=== PATIENT | male | born 1970 | race Caucasian/White ===

== ENCOUNTER 2017-02-15 23:42 | Emergency (ER) | payer OTHER ==
[2017-02-16] MEDS: KETOROLAC TROMETHAMINE 60 MG/2 ML VIAL IM ONE (00:13)
[2017-02-16 00:46] VITALS: BP 143/85
--- NOTE | 2017-02-16 01:11 | ED Physician Documentation ---
Low Back Pain - HISTORIAN Historian: patient - HPI Stated Complaint: BACK PAIN Chief Complaint: Low Back Pain/ Injury History: back pain Onset: hours Duration: continues in ED Context: lifting Severity: severe Quality: similar- prior back pain Further Comments: yes (53 year old male presents to the ER with complaints of sciatica radiating down left leg. Patient reports lifting his brother in law, "pulled my back". Patient is accompanied by his friend who presents with similar complaints. C/O pain radiating down left leg.) - ROS CONST: no problems CVS/RESP: none EYES/ENT: none MS/SKIN/LYMPH: back pain Neuro/Psych: none GI/: denies: abdominal pain, black stools - PAST HX Past History: back injury, back pain Other History: hypertension, other (HTN, COPD, seizures) Allergies/Adverse Reactions: Allergies Allergy/AdvReac Type Severity Reaction Status Date / Time trazodone Allergy Severe Anaphylaxis Verified 02/15/17 23:58 amoxicillin [Amoxicillin] Allergy Anaphylaxis Verified 02/15/17 23:58 Home Medications: Ambulatory Orders Medication Instructions Recorded Atenolol [Tenormin] 50 mg PO DAILY 01/18/13 Baclofen [Lioresal] 10 mg PO TID 01/18/13 Fluticasone Propionate [Flovent 2 puff IH BID 01/18/13 Diskus] Gabapentin 600 mg PO TID 01/18/13 Hydroxyzine Pamoate [Vistaril] 50 mg PO BID 01/18/13 Ipratropium/Albuterol Sulfate 2 puff IH QID 01/18/13 [Combivent Inhaler] Phenytoin Sodium Extended 300 mg PO HS 01/18/13 [Dilantin] Phenytoin [Dilantin] 50 mg PO HS 01/18/13 Prazosin HCl [Minipress] 2 mg PO HS 01/18/13 Promethazine HCl [Phenergan] 25 mg PO Q6 PRN 01/18/13 Quetiapine Fumarate [Seroquel] 400 mg PO HS 01/18/13 SUMAtriptan SUCCINATE [Imitrex] 25 mg PO PRN PRN 01/18/13 Tamsulosin HCl 2 tab PO DAILY 01/18/13 levETIRAcetam [Keppra] 1,000 mg PO BID 01/18/13 Cetirizine HCl [Zyrtec] 10 mg PO DAILY 06/16/13 Duloxetine HCl [Cymbalta] 20 mg PO BID 06/16/13 Lisinopril 20 mg PO DAILY 06/16/13 Quetiapine Fumarate [Seroquel] 50 mg PO DAILY 06/16/13 Chlorpromazine HCl 100 mg PO D 08/17/14 Duloxetine HCl [Cymbalta] 60 mg PO DAILY 08/17/14 Ondansetron HCl Tablet [Zofran] 8 mg PO Q6H PRN 08/17/14 Zolpidem Tartrate [Ambien] 10 mg PO HS 08/17/14 Naproxen [Naprosyn] 500 mg PO BID #10 tablet 02/16/17 - SOCIAL HX Smoking History: cigarettes - FAMILY HX Family History: denies: none - VITAL SIGNS Vital Signs: Vital Signs Temp Pulse Resp BP Pulse Ox 98.6 F 72 18 143/85 97 02/16/17 00:45 02/16/17 00:45 02/16/17 00:45 02/16/17 00:45 02/15/17 23:46 - REVIEWED ASSESSMENTS Nursing Assessment Reviewed: Yes Vitals Reviewed: Yes Progress - Progress Progress: Patient medicated for pain with toradol IM. Patient is driving will not give narcotic in ER. Prescription for NSAID to pharmacy. ED Results Lab/Radiology - Orders Orders: ED Orders Category Date Time Status Ketorolac Tromethamine [Toradol] Med 02/16/17 00:09 Discontinued 60 mg IM NOW ONE Low Back Pain/Injury - Physical Exam General Appearance: no acute distress, alert EENT: eye inspection normal, KAITLYNN Resp/CVS: chest non-tender, breath sounds nml, heart sounds nml, no resp. distress, lungs clear, reg. rate & rhythm Abdomen: non-tender, no organomegaly, no pulsatile mass Back: non-tender, painless ROM. No: vertebral point-tendernes, CVA tenderness, muscle spasm Straight Leg Raising: Negative Left, Negative Right Neuro/Psych: oriented x3, motor nml, sensation nml, bilat. 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 You may use Tylenol every 4hour as needed for pain. Limit your dose to less than 4 G per day. Home Medications: Ambulatory Orders Atenolol [Tenormin] 50 mg PO DAILY 01/18/13 Baclofen [Lioresal] 10 mg PO TID 01/18/13 Fluticasone Propionate [Flovent Diskus] 2 puff IH BID 01/18/13 Gabapentin 600 mg PO TID 01/18/13 Hydroxyzine Pamoate [Vistaril] 50 mg PO BID 01/18/13 Ipratropium/Albuterol Sulfate [Combivent Inhaler] 2 puff IH QID 01/18/13 Phenytoin Sodium Extended [Dilantin] 300 mg PO HS 01/18/13 Phenytoin [Dilantin] 50 mg PO HS 01/18/13 Prazosin HCl [Minipress] 2 mg PO HS 01/18/13 Promethazine HCl [Phenergan] 25 mg PO Q6 PRN 01/18/13 Quetiapine Fumarate [Seroquel] 400 mg PO HS 01/18/13 SUMAtriptan SUCCINATE [Imitrex] 25 mg PO PRN PRN 01/18/13 Tamsulosin HCl 2 tab PO DAILY 01/18/13 levETIRAcetam [Keppra] 1,000 mg PO BID 01/18/13 Cetirizine HCl [Zyrtec] 10 mg PO DAILY 06/16/13 Duloxetine HCl [Cymbalta] 20 mg PO BID 06/16/13 Lisinopril 20 mg PO DAILY 06/16/13 Quetiapine Fumarate [Seroquel] 50 mg PO DAILY 06/16/13 Chlorpromazine HCl 100 mg PO D 08/17/14 Duloxetine HCl [Cymbalta] 60 mg PO DAILY 08/17/14 Ondansetron HCl Tablet [Zofran] 8 mg PO Q6H PRN 08/17/14 Zolpidem Tartrate [Ambien] 10 mg PO HS 08/17/14 Naproxen [Naprosyn] 500 mg PO BID #10 tablet 02/16/17 Condition: Good Disposition: 01 HOME, SELF-CARE Decision to Admit: NO Decision Time: 01:05
== END 2017-02-16 00:45 | disposition home or self-care (01) ==
LOC: ED 23:42
DX: M54.32 Sciatica, left side (principal)
CPT/HCPCS: 96372; 99283; J1885

== ENCOUNTER 2017-03-21 13:54 | Emergency (ER) | payer OTHER ==
[2017-03-21 14:06] VITALS: BP 163/99
--- NOTE | 2017-03-21 14:33 | ED Physician Documentation ---
Low Back Pain - HISTORIAN Historian: patient - HPI Stated Complaint: Back Pain Chief Complaint: Low Back Pain/ Injury Additional Information: HAD SEIZURE THIS AM FELL OVER TABLE W/LO BACK PAIN. DENIES OTHER INJURIES History: other (SEIZURES ET AL - MANY MEDS) Onset: hours (0800) Duration: continues in ED Recent Injury: Yes Context: fall Where: home Other Injuries: back Severity: mild, moderate Quality: dull, similar- prior back pain Associated Symptoms: denies: fever, chills, sweating Worsened By:: other (MOVEMENTESP FLEXION) - ROS CONST: no problems CVS/RESP: none EYES/ENT: none MS/SKIN/LYMPH: none GI/: denies: abdominal pain - PAST HX Past History: sciatica, other (SEIZURES ASTHMA HTN DEPRESSION SCHIZOPHRENIA) Allergies/Adverse Reactions: Allergies Allergy/AdvReac Type Severity Reaction Status Date / Time trazodone Allergy Severe Anaphylaxis Verified 03/21/17 14:06 amoxicillin [Amoxicillin] Allergy Anaphylaxis Verified 03/21/17 14:06 Home Medications: Ambulatory Orders Medication Instructions Recorded Atenolol [Tenormin] 50 mg PO DAILY 01/18/13 Baclofen [Lioresal] 10 mg PO TID 01/18/13 Fluticasone Propionate [Flovent 2 puff IH BID 01/18/13 Diskus] Gabapentin 600 mg PO TID 01/18/13 Hydroxyzine Pamoate [Vistaril] 50 mg PO BID 01/18/13 Ipratropium/Albuterol Sulfate 2 puff IH QID 01/18/13 [Combivent Inhaler] Phenytoin Sodium Extended 300 mg PO HS 01/18/13 [Dilantin] Phenytoin [Dilantin] 50 mg PO HS 01/18/13 Prazosin HCl [Minipress] 2 mg PO HS 01/18/13 Promethazine HCl [Phenergan] 25 mg PO Q6 PRN 01/18/13 Quetiapine Fumarate [Seroquel] 400 mg PO HS 01/18/13 SUMAtriptan SUCCINATE [Imitrex] 25 mg PO PRN PRN 01/18/13 Tamsulosin HCl 2 tab PO DAILY 01/18/13 levETIRAcetam [Keppra] 1,000 mg PO BID 01/18/13 Cetirizine HCl [Zyrtec] 10 mg PO DAILY 06/16/13 Duloxetine HCl [Cymbalta] 20 mg PO BID 06/16/13 Lisinopril 20 mg PO DAILY 06/16/13 Quetiapine Fumarate [Seroquel] 50 mg PO DAILY 06/16/13 Chlorpromazine HCl 100 mg PO D 08/17/14 Duloxetine HCl [Cymbalta] 60 mg PO DAILY 08/17/14 Ondansetron HCl Tablet [Zofran] 8 mg PO Q6H PRN 08/17/14 Zolpidem Tartrate [Ambien] 10 mg PO HS 08/17/14 Naproxen [Naprosyn] 500 mg PO BID #10 tablet 02/16/17 Methocarbamol [Robaxin-750] 750 mg PO QID #40 tablet 03/21/17 predniSONE [Deltasone] 60 mg PO QD #12 tablet 03/21/17 - SOCIAL HX Smoking History: greater than 1 pack/day Alcohol Use: none Drug Use: none - FAMILY HX Family History: none - VITAL SIGNS Vital Signs: Vital Signs Temp Pulse Resp BP Pulse Ox 98 F 68 18 163/99 96 03/21/17 13:55 03/21/17 14:28 03/21/17 14:28 03/21/17 14:28 03/21/17 14:28 - REVIEWED ASSESSMENTS Nursing Assessment Reviewed: Yes Vitals Reviewed: Yes Low Back Pain/Injury - Physical Exam General Appearance: mild distress EENT: eye inspection normal Neck: non-tender, painless ROM Resp/CVS: chest non-tender, breath sounds nml, heart sounds nml Abdomen: non-tender Back: CVA tenderness, other (CAN TOLERATE 90 DEG LEG FLEXION SITTING BUT PAIN AT 15 DEG SUPINE) Neuro/Psych: oriented x3, motor nml, sensation nml Skin: warm/dry, normal color. No: cyanosis, diaphoresis Extremities: non-tender, normal range of motion Discharge Clincal Impression: SEIZURE FALL LO BACK PAIN Prescriptions: Methocarbamol [Robaxin-750] 750 mg PO QID #40 tablet predniSONE [Deltasone] 60 mg PO QD #12 tablet Referrals: Primary Doctor,No [Primary Care Provider] - 2 Days Comments: PRED PLUS ROBAXIN Condition: Good Disposition: 01 HOME, SELF-CARE Decision to Admit: NO Decision Time: 14:38
== END 2017-03-21 14:28 | disposition home or self-care (01) ==
LOC: ED 13:54
DX: G40.909 Epilepsy, unspecified, not intractable, without status epilepticus (principal); M54.5 Low back pain; W19.XXXA Unspecified fall, initial encounter; Y93.9 Activity, unspecified; Y99.9 Unspecified external cause status
CPT/HCPCS: 99283

== ENCOUNTER 2017-09-17 20:17 | Emergency (ER) | payer OTHER ==
--- NOTE | 2017-09-17 20:21 | ED Physician Documentation ---
Male Genitourinary Problems - HISTORIAN Historian: patient - HPI Stated Complaint: low back pain Chief Complaint: Lower Extremity Problem Onset: other (3 weeks ) Duration: continues in ED Context: other (history of low back pain ) Further Comments: yes (States he is concerned with kidney infection. Denies any urgecny no burning, no blood in urine. Denies any loss of control of bowel or bladder. He has no numbness or pain in legs. No new injury. He has tried tylenol and ibuprofen with no aide. He has no other complaints . No penial dischage. No new sexual partners) - Associated Symptoms Problems Urinating: denies: blood in urine, frequent urination, discomfort w/ urination, burning w/ urination, urgency w/ urination, pain w/ urination Penile Discharge Descripiton: other (denies any discharge ) Testicular Pain: none Testicular Swelling: none Penile Pain: No Penile Swelling: No Flank Pain: none Abdominal Pain: none - Sexual History Sexual History: non-contributory - ROS CONST: none GI/: denies: nausea, vomiting, abdominal pain, problems urinating MS/SKIN/LYMPH: none CVS/RESP: none EYES/ENT: none - PAST HX Past History: hypertension, other (low back pain) Surgeries/Procedures: other (cardiac stent ) Immunizations: referred to PCP Allergies/Adverse Reactions: Allergies Allergy/AdvReac Type Severity Reaction Status Date / Time amoxicillin [Amoxicillin] Allergy Severe Anaphylaxis Verified 09/17/17 20:47 trazodone Allergy Severe Anaphylaxis Verified 09/17/17 20:47 Home Medications: Ambulatory Orders Medication Instructions Recorded Ipratropium/Albuterol Sulfate 2 puff IH QID 01/18/13 [Combivent Inhaler] Prazosin HCl [Minipress] 2 mg PO HS 01/18/13 SUMAtriptan SUCCINATE [Imitrex] 25 mg PO PRN PRN 01/18/13 levETIRAcetam [Keppra] 1,000 mg PO BID 01/18/13 Zolpidem Tartrate [Ambien] 10 mg PO HS 08/17/14 Naproxen [Naprosyn] 500 mg PO BID #10 tablet 02/16/17 Fluticasone Propionate [Flovent 1 puff INH DIRECTED 09/17/17 Diskus] - SOCIAL HX Smoking History: cigarettes Alcohol Use: none Drug Use: none - FAMILY HX Family History: none - VITAL SIGNS Vital Signs: Vital Signs Temp Pulse Resp BP Pulse Ox 163/99 03/21/17 14:28 - REVIEWED ASSESSMENTS Nursing Assessment Reviewed: Yes Vitals Reviewed: Yes ED Results Lab/Radiology - Orders Orders: ED Orders Category Date Time Status Cyclobenzaprine HCl [Flexeril] Med 09/17/17 20:48 Once 10 mg PO NOW ONE Male Genitourinary Problems - EXAM General Appearance: no acute distress, alert Abdomen: non-tender, no organomegaly. No: guarding, abnml bowel sounds EENT: eye inspection normal Neck: nml inspection Respiratory: no resp distress, chest non-tender, breath sounds normal CVS: reg rate & rhythm, heart sounds normal, equal pulses, no murmur Back: other (painful ROM with forward and side bending . Pain with palpation on right and left lower back with midline ) Extremities: normal range of motion, non-tender, no pedal edema Neuro/Psych: oriented X3, CN's nml as tested, motor nml, sensation nml, mood/ affect nml Skin: warm/dry, normal color Discharge Clincal Impression: Low back pain Qualifiers: Chronicity: chronic Back pain laterality: left Sciatica presence: with sciatica Sciatica laterality: sciatica laterality unspecified Qualified Code(s) : M54.40 - Lumbago with sciatica, unspecified side Referrals: Pawan Santiago MD [Primary Care Provider] - 2 Days Additional Instructions: 1. Cyclobenzaprine 10 mg take 1 by mouth every 8 hours as needed for pain 2. Naproxen 500 mg BID as needed for pain 3. Medrol Dose pack (4mg) take as directed 4. Ice/Heat 5. Back exercises 6. Return TO PCP in 4-6 days for re eval 7. return to ER for uncontrolled pain, loss of control of bowel or bladder or other concerns Condition: Stable Decision to Admit: NO Date of Decison to Admit: 09/17/17 Decision Time: 21:00
[2017-09-17] MEDS ORDERED: CYCLOBENZAPRINE HCL 5 MG TABLET PO ONE (20:48)
[2017-09-17 21:30] VITALS: BP 157/99
== END 2017-09-17 21:05 | disposition home or self-care (01) ==
LOC: ED 20:17
DX: M54.40 Lumbago with sciatica, unspecified side (principal)
CPT/HCPCS: 99282

== ENCOUNTER 2017-10-25 01:08 | Emergency (ER) | payer OTHER ==
--- NOTE | 2017-10-25 01:12 | ED Physician Documentation ---
General Adult - HISTORIAN Historian: patient - HPI Stated Complaint: shortness of breath Chief Complaint: Dyspnea Onset: days ago (2) Timing: still present Severity: mild Further Comments: yes (He states over the last two days he has had increasing shortness of breath. He is a smoker. Denies a fever. No wheezing. he is short of breath "all the time" No OTC meds . No allergy symtpoms no sick contacts. No swelling.) Last known Well Code/Unknown Code: Unknown - ROS CONST: denies: fever, weakness EYES/ENT: denies: sore throat, nasal congestion CVS/RESP: shortness of breath. denies: chest pain, cough GI/: denies: vomiting, nausea MS/SKIN/LYMPH: denies: rash NEURO/PSYCH: denies: headache - PAST HX Past History: hypertension, other (hyperlipidemia and [place] ) Surgeries/Procedures: cardiac stent Immunizations: UTD Allergies/Adverse Reactions: Allergies Allergy/AdvReac Type Severity Reaction Status Date / Time amoxicillin [Amoxicillin] Allergy Severe Anaphylaxis Verified 09/17/17 20:47 trazodone Allergy Severe Anaphylaxis Verified 09/17/17 20:47 Home Medications: Ambulatory Orders Medication Instructions Recorded Ipratropium/Albuterol Sulfate 2 puff IH QID 01/18/13 [Combivent Inhaler] Prazosin HCl [Minipress] 2 mg PO HS 01/18/13 SUMAtriptan SUCCINATE [Imitrex] 25 mg PO PRN PRN 01/18/13 levETIRAcetam [Keppra] 1,000 mg PO BID 01/18/13 Zolpidem Tartrate [Ambien] 10 mg PO HS 08/17/14 Naproxen [Naprosyn] 500 mg PO BID #10 tablet 02/16/17 Fluticasone Propionate [Flovent 1 puff INH DIRECTED 09/17/17 Diskus] - SOCIAL HX Smoking History: cigarettes Alcohol Use: none Drug Use: none - FAMILY HX Family History: No - VITAL SIGNS Vital Signs: Vital Signs Temp Pulse Resp BP Pulse Ox 157/99 09/17/17 21:27 - REVIEWED ASSESSMENTS Nursing Assessment Reviewed: Yes Vitals Reviewed: Yes Progress - Progress Progress: 0217: discussed results . Pt understands DG ED Results Lab/Radiology - Radiology Radiology Impressions: Chest 2 views History: Shortness of breath Findings: Mild right infrahilar infiltrate or bronchitis is observed. The left lung is clear. There is no pleural effusion. Heart size is normal. Impression: Right infrahilar infiltrate versus bronchitis. Electronically signed on October 25, 2017 1:40:13 AM CDT by: Alvaro Alfredo General Adult Physical Exam - PHYSICAL EXAM GENERAL APPEARANCE: no distress EENT: eye inspection normal, ENT inspection normal, pharynx normal NECK: normal inspection RESPIRATORY: no resp distress, chest non-tender, breath sounds normal CVS: reg rate & rhythm, heart sounds normal, equal pulses, no murmur ABDOMEN: soft, normal bowel sounds BACK: normal inspection SKIN: warm/dry EXTREMITIES: non-tender, normal range of motion, no evidence of injury, no edema NEURO: oriented X3, CN's nml as tested, motor nml, sensation nml, mood/affect nml, cognition normal Discharge Clincal Impression: Shortness of breath, Bronchitis Referrals: Pawan Santiago MD [Primary Care Provider] - 2 Days Comments: 1. STOP SMOKING 2. Take meds as ordered 3. Azithromycin 250 mg take 1 by mouth daily x4 days (500mg in ER) 4. Pro Air 2 puffs every 4-6 hours as needed for cough or shortness of air 5. Increase fluids 6. Follow up with PCP in 2-4 days 7. Return to ER for any changes in symptoms or concerns Condition: Stable Disposition: 01 HOME, SELF-CARE Decision to Admit: NO Date of Decison to Admit: 10/25/17 Decision Time: 02:18
[2017-10-25] MEDS ORDERED: IPRATROPIUM/ALBUTEROL SULFATE 3 ML AMPUL.NEB NEB ONE (01:21)
[2017-10-25] MEDS ORDERED: methylPREDNISolone SOD SUCC 125 MG/2 ML VIAL IVP ONE (01:43)
[2017-10-25 02:05] LABS: MEAN CORPUSCULAR HEMOGLOBIN 28.4 pg (28.0-34.0); MEAN CORPUSCULAR VOLUME 88.2 fl (80.0-100.0)
[2017-10-25 02:06] LABS: BASOPHILS % 0.3 (0.0-1.5); EOSINOPHILS % 6.8 % (0.0-6.8); MONOCYTES % 3.5 % (0.0-11.0); NEUTROPHILS # 3.5 # k/uL (1.4-7.7)
[2017-10-25 02:15] LABS: eGFR (African) > 60; eGFR (Non-African) > 60
[2017-10-25] MEDS ORDERED: AZITHROMYCIN 250 MG TABLET PO ONE ×2 (02:21→02:22)
[2017-10-25 03:08] VITALS: BP 139/88
--- NOTE | 2017-10-25 06:28 | Diagnostic Imaging Report ---
ALLISON HERNÁNDEZ [facility] [address] [facility].[address] [id number] Report Submission Date: October 25, 2017 1:40:13 AM CDT Patient Study Name: ISH BATISTA Date: October 25, 2017 1:23:20 AM CDT Modality Type: DX Gender: M Description: CHEST : 66 Institution: [facility] Physician: ALLISON HERNÁNDEZ Chest 2 views History: Shortness of breath Findings: Mild right infrahilar infiltrate or bronchitis is observed. The left lung is clear. There is no pleural effusion. Heart size is normal. Impression: Right infrahilar infiltrate versus bronchitis. Electronically signed on October 25, 2017 1:40:13 AM CDT by: Alvaro ROWE
== END 2017-10-25 02:27 | disposition home or self-care (01) ==
LOC: ED 01:08
DX: J40 Bronchitis, not specified as acute or chronic (principal); R06.02 Shortness of breath
CPT/HCPCS: 71046; 80053; 85025; J2930; 94640; 96372; 99284; S1016

== ENCOUNTER 2019-05-04 04:53 | Emergency (ER) | payer OTHER ==
--- NOTE | 2019-05-04 05:20 | ED Physician Documentation ---
Dyspnea - HISTORIAN Historian: patient - HPI Stated Complaint: shortness of breath Chief Complaint: Dyspnea Additional Information: Patient presented to ED with a 3 day history of worsening shortness of breath. Patient states his shortness of breath is worse when he lays down, better with sitting erect. He states the last time he was short of breath like this he had bronchitis. He has HTN, CAD, COPD. Onset: days ago (3) - ROS CONST: no problems EYES/ENT: none GI/: denies: vomiting, nausea NEURO/PSYCH: denies: headache MS/SKIN/LYMPH: denies: muscle aches - PAST HX Lung Disease: COPD Cardiac Disease: CAD PE Risk Factors: hypertension Surgeries/Procedures: none Other History: none Allergies/Adverse Reactions: Allergies Allergy/AdvReac Type Severity Reaction Status Date / Time amoxicillin [Amoxicillin] Allergy Severe Anaphylaxis Verified 05/04/19 06:04 trazodone Allergy Severe Anaphylaxis Verified 05/04/19 06:04 tramadol Allergy Verified 05/04/19 06:07 Home Medications: Ambulatory Orders Medication Instructions Recorded Aspirin [Aspir-Low] 81 mg PO DAILY 05/04/19 Atorvastatin Calcium 80 mg PO DAILY 05/04/19 Carisoprodol [Soma] 250 mg PO DAILY 05/04/19 Clopidogrel Bisulfate [Plavix] 75 mg PO DAILY 05/04/19 Levofloxacin [Levaquin] 750 mg PO DAILY #5 tablet 05/04/19 Losartan Potassium [Cozaar] 50 mg PO DAILY 05/04/19 Methylprednisolone [Medrol] 4 mg PO DIRECTED #1 tab.ds.pk 05/04/19 Metoprolol Tartrate [Lopressor] 25 mg PO DAILY 05/04/19 PARoxetine HCL [Paxil] 05/04/19 Prazosin HCl 1 mg PO DAILY 05/04/19 - SOCIAL HX Smoking History: cigarettes, greater than 1 pack/day Alcohol Use: none Drug Use: none - FAMILY HX Family History: none - VITAL SIGNS Vital Signs: Vital Signs Temp Pulse Resp BP Pulse Ox 139/88 10/25/17 02:30 ED Results Lab/Radiology - Radiology Radiology Impressions: Report Submission Date: May 04, 2019 6:08:32 AM 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 Elevated right hemidiaphragm is again noted. Minimal right basilar opacity/ atelectasis. No pleural effusion or pneumothorax. Thoracic spine degenerative changes Impression: Elevated right hemidiaphragm with minimal right basilar atelectasis/ patchy infiltrate. Electronically signed on May 04, 2019 6:08:32 AM NATIONAL ACCOUNTS RECRUITER by: Fior Augustine - Orders Orders: ED Orders Category Date Time Status Place IV Lock 1T Care 05/04/19 05:08 Ordered CHEST 2VIEW [RAD] Stat Exams 05/04/19 Ordered CBC/PLATELET/DIFF Routine Lab 05/04/19 Ordered CMP Routine Lab 05/04/19 Ordered NT BNP Stat Lab 05/04/19 Ordered TROPONIN I Stat Lab 05/04/19 Ordered Ipratropium/Albuterol Sulfate [Duoneb] Med 05/04/19 05:14 Once 3 ml NEB NOW ONE EKG WITH COMPARISON Stat Ther 05/04/19 Ordered Dyspnea Physical Exam - EXAM General Appearance: no acute distress, alert EENT: KAITLYNN Respiratory: no resp. distress, other (diminished breath sounds bilaterally) CVS: bradycardia Abdomen: non-tender. No: tenderness Skin: color nml, no rash. No: cyanosis Extremities: non-tender, normal range of motion, no edema Neuro/Psych: oriented x3, mood/affect nml Discharge Clincal Impression: Left lower lobe pneumonia Qualifiers: Pneumonia type: due to other aerobic Gram-negative bacteria Qualified Code(s): J15.6 - Pneumonia due to other Gram-negative bacteria Prescriptions: Levofloxacin [Levaquin] 750 mg PO DAILY #5 tablet Methylprednisolone [Medrol] 4 mg PO DIRECTED #1 tab.ds.pk Referrals: Pawan Santiago MD [REFERRING] - 2 Days Additional Instructions: 1. Start Levaquin and Medrol dose pack tomorrow 05/05/19 2. Take antibiotic until gone 3. Smoking cessation strongly recommended 4. Follow up with PCP within 1 week 5. Return to ER for new or worsening symptoms Condition: Stable Disposition: 01 HOME, SELF-CARE Decision to Admit: NO Date of Decison to Admit: 05/04/19 Decision Time: 06:53
[2019-05-04] MEDS: IPRATROPIUM/ALBUTEROL SULFATE 3 ML AMPUL.NEB NEB ONE (05:50)
--- NOTE | 2019-05-04 06:12 | Diagnostic Imaging Report ---
PATIENT MR#: [id number] PATIENT PATIENT NAME: ISH BATISTA DATE OF : 1970 REFERRING PHYSICIAN: Aditi Hsu EXAM DATE: 05/04/2019 ACCESSION NUMBER: [id number] EXAM DESCRIPTION: CHEST 2VIEW 2 views of the chest History: soa an Comparison: October 25, 2017 The heart is normal in size. Elevated right hemidiaphragm is again noted. Minimal right basilar opaci ty/ atelectasis. No pleural effusion or pneumothorax. Thoracic spine degenerative changes Impression: Elevated right hemidiaphragm with minimal right basilar atelectasis/ patchy infiltrate. Read by: Dr. Fior Augustine Transcribed by: Transcribed Date: Electronically signed by: Dr. Fior Augustine Date signed: 05/04/2019 6:12:09 AM
[2019-05-04 06:23] LABS: BASOPHILS % 0.5 % (0.0-1.5); NEUTROPHILS # 6.9 # k/uL (1.4-7.7)
[2019-05-04 06:25] LABS: eGFR (Non-African) > 60
[2019-05-04] MEDS: methylPREDNISolone SOD SUCC 125 MG/2 ML VIAL IVP ONE (06:31)
[2019-05-04] MEDS: LevoFLOXacin 750 MG/150 ML PIGGYBACK IV ONE (06:31)
[2019-05-04 07:38] VITALS: BP 132/87
== END 2019-05-04 07:30 | disposition home or self-care (01) ==
LOC: ED 04:53
DX: J15.6 Pneumonia due to other Gram-negative bacteria (principal); F17.210 Nicotine dependence, cigarettes, uncomplicated
CPT/HCPCS: 71046; 80053; 83880; 84484; 85025; 93005; 94640; 96361; 96374; 99283; 99284; J2930; S1016

== ENCOUNTER 2019-06-23 20:33 | Emergency (ER) | payer OTHER ==
[2019-06-23 20:49] VITALS: BP 151/96
--- NOTE | 2019-06-23 20:54 | ED Physician Documentation ---
Upper Respiratory Symptoms - HISTORIAN Historian: patient - HPI Stated Complaint: can not take a deep breath in Chief Complaint: Cough/ Upper Respiratory Additional Information: 48 year old male presents with c/o "hard to take a deep breath"; denies cough, fever, chills. He smokes > 1 1/2 ppd; smoked a cigarette before coming in. He is 99% on room air; lungs are clear; he states that he 'might' need proair inhaler; he is not sure where his is. Onset: hours Context: denies: multiple patients, same sx Severity: mild Associated Symptoms: other ("feels like he cant take a deep breath"). denies: fever, chills, runny nose, sinus pain, sinus drainage, sore throat, chest pain, productive cough, shortness of breath - ROS CONST/EYES: denies: eye redness, eye itching CVS/RESP: shortness of breath ("hard to take a deep breath") LYMPH: denies: swollen glands GI/: none NEURO/PSYCH: denies: dizziness MS/SKIN: denies: joint pain, muscle aches - PAST HX Lung Disease: COPD PE Risk Factors: hypertension Immunizations: UTD Allergies/Adverse Reactions: Allergies Allergy/AdvReac Type Severity Reaction Status Date / Time amoxicillin [Amoxicillin] Allergy Severe Anaphylaxis Verified 06/23/19 20:44 trazodone Allergy Severe Anaphylaxis Verified 06/23/19 20:44 tramadol Allergy Verified 06/23/19 20:44 Home Medications: Ambulatory Orders Medication Instructions Recorded Aspirin [Aspir-Low] 81 mg PO DAILY 05/04/19 Atorvastatin Calcium 80 mg PO DAILY 05/04/19 Carisoprodol [Soma] 250 mg PO DAILY 05/04/19 Clopidogrel Bisulfate [Plavix] 75 mg PO DAILY 05/04/19 Levofloxacin [Levaquin] 750 mg PO DAILY #5 tablet 05/04/19 Losartan Potassium [Cozaar] 50 mg PO DAILY 05/04/19 Methylprednisolone [Medrol] 4 mg PO DIRECTED #1 tab.ds.pk 05/04/19 Metoprolol Tartrate [Lopressor] 25 mg PO DAILY 05/04/19 PARoxetine HCL [Paxil] 1 tab PO DAILY 05/04/19 Prazosin HCl 1 mg PO DAILY 05/04/19 Albuterol Sulfate [Proair HFA] 1 inh IH Q4H PRN #1 hfa.[email or web address] 06/23/19 - SOCIAL HX Smoking History: greater than 1 pack/day Alcohol Use: none Drug Use: none - FAMILY HX Family History: none - VITAL SIGNS Vital Signs: Vital Signs Temp Pulse Resp BP Pulse Ox 98.0 F 71 21 151/96 97 06/23/19 20:40 06/23/19 20:40 06/23/19 20:40 06/23/19 20:40 06/23/19 20:40 - REVIEWED ASSESSMENTS Nursing Assessment Reviewed: Yes Vitals Reviewed: Yes Upper Respiratory Symptoms - EXAM General Appearance: no acute distress, alert EENT: eyes nml inspection, nml ENT inspection, lids & conjunct. nml, PERRL, ear nml, nose nml, pharynx nml, airway nml Neck: normal inspection, supple Respiratory: breath sounds nml, speaks full sentences Abdomen: non-tender, nml bowel sounds CVS: heart sounds normal, equal pulses, no JVD Skin: color nml, no rash, warm,dry Extremities: normal range of motion Neuro/Psych: oriented x3, neuro intact, mood/affect nml Discharge Clincal Impression: Breathing difficult Prescriptions: Albuterol Sulfate [Proair HFA] 1 inh IH Q4H PRN #1 hfa.aer.ad PRN Reason: Shortness of breath/wheezing Referrals: Primary Doctor,No [Primary Care Provider] - 2 Days Additional Instructions: 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
== END 2019-06-23 20:56 | disposition home or self-care (01) ==
LOC: ED 20:33
DX: R06.00 Dyspnea, unspecified (principal)
CPT/HCPCS: 99282; 99284